=== PATIENT | male | born 1955 | race Hispanic/Latino ===

== ENCOUNTER 2018-06-11 08:25 | Emergency (ER) | payer OTHER ==
[~2018-06-11] VITALS: Ht 167.6 cm; Wt 73.5 kg
[2018-06-11] MEDS ORDERED: SODIUM CHLORIDE 0.9% 1000ML 1,000 ML IV STA ×2 (08:50→09:14)
[2018-06-11 09:15] LABS: BASOPHILS # (AUTO) 0.1 (0.0-0.1); BASOPHILS % 0.6 % (0.0-1.0); EOSINOPHILS # (AUTO) 0.3 (0.0-0.4); EOSINOPHILS % 2.4 % (0.0-6.0); HEMATOCRIT 45.7 % (38.2-49.6); HEMOGLOBIN 15.7 g/dL (14.0-18.0); LYMPHOCYTES # (AUTO) 1.3 (1.0-3.2); LYMPHOCYTES % 10.1 % (18.0-39.1); MEAN CORPUSCULAR HEMOGLOBIN 28.3 pg (28-32); MEAN CORPUSCULAR HGB CONC 34.4 g/dL (31-35); MEAN CORPUSCULAR VOLUME 82.3 fL (81-99); MONOCYTES # (AUTO) 0.8 (0.2-0.8); MONOCYTES % 6.5 % (4.4-11.3); NEUTROPHILS # (AUTO) 9.9 (2.1-6.9); NEUTROPHILS % 79.7 % (38.7-80.0); PLATELET COUNT 336 x10e3/uL (140-360); RED BLOOD COUNT 5.55 x10e6/uL (4.3-5.7); RED CELL DISTRIBUTION WIDTH 12.8 % (11.7-14.4)
[2018-06-11 09:19] LABS: CLARITY,URINE HAZY (CLEAR); COLOR,URINE YELLOW (YELLOW); KETONES,URINE NEGATIVE (NEGATIVE); LEUKOCYTE ESTERASE ,URINE NEGATIVE (NEGATIVE); NITRITE,URINE NEGATIVE (NEGATIVE); PROTEIN,URINE DIPSTICK NEGATIVE (NEGATIVE); URINE UROBILINOGEN 0.2 mg/dL (0.2 - 1)
[2018-06-11 09:20] LABS: BILIRUBIN,URINE NEGATIVE (NEGATIVE)
[2018-06-11 09:25] LABS: INR 0.89; PARTIAL THROMBOPLASTIN TIME 24.7 seconds (23.8-35.5); PROTHROMBIN TIME 12.5 seconds (11.9-14.5)
[2018-06-11] MEDS ORDERED: INSULIN REGULAR, HUMAN 100 UNIT/1 ML 3ML VIAL IV ONE (09:30)
[2018-06-11 09:33] LABS: ALANINE AMINOTRANSFERASE 26 IU/L (0-55); ALBUMIN 3.7 g/dL (3.5-5.0); ALBUMIN/GLOBULIN RATIO 0.8 (0.8-2.0); ALKALINE PHOSPHATASE 147 IU/L (40-150); ANION GAP 18.7 mmol/L (8-16); BLOOD UREA NITROGEN 28 mg/dL (7-26); BUN/CREATININE RATIO 18 (6-25); CALCIUM 10.5 mg/dL (8.4-10.2); CARBON DIOXIDE 26 mmol/L (22-29); CHLORIDE 97 mmol/L (98-107); CREATINE KINASE 81 IU/L (30-200); EST GLOMERULAR FILTRATION RATE 44 ML/MIN (60-); MAGNESIUM 2.7 MG/DL (1.3-2.1); POTASSIUM 3.7 mmol/L (3.5-5.1); SODIUM 138 mmol/L (136-145)
[2018-06-11 09:36] LABS: BACTERIA,URINE MODERATE /HPF; EPITHELIAL CELLS,URINE MODERATE /LPF; RBC,URINE 0-5 /HPF (0-5); YEAST,URINE MODERATE
[2018-06-11 09:38] LABS: GLUCOSE 596 mg/dL (74-118)
[2018-06-11] MEDS ORDERED: CEFTRIAXONE SOD 1 GM/NS 50 ML 50 ML IV NR ×2 (10:00→10:15)
--- NOTE | 2018-06-11 10:10 | Diagnostic Imaging Report ---
EXAMINATION: CHEST SINGLE (PORTABLE) INDICATION: ^HTN, HYPERGLYCEMIA ^[id number] ^[id number] COMPARISON: None FINDINGS: AP view TUBES and LINES: None. LUNGS: Lungs are well inflated. Lungs are clear. There is no evidence of pneumonia or pulmonary edema. PLEURA: No pleural effusion or pneumothorax. HEART AND MEDIASTINUM: The cardiomediastinal silhouette is unremarkable.. BONES AND SOFT TISSUES: No acute osseous lesion. Soft tissues are unremarkable. UPPER ABDOMEN: No free air under the diaphragm. IMPRESSION: No acute thoracic abnormality. Signed by: Dr. Tiffany Berry M.D. on 06/11/2018 10:07 AM
[2018-06-11] MEDS ORDERED: CEFTRIAXONE SOD 1 GM/NS 50 ML 50 ML IV ONE (10:30)
== END 2018-06-11 11:39 | disposition home or self-care (01) ==
LOC: ER 08:25
DX: B37.42 Candidal balanitis (principal); N30.90 Cystitis, unspecified without hematuria; E11.65 Type 2 diabetes mellitus with hyperglycemia; N28.9 Disorder of kidney and ureter, unspecified; I10 Essential (primary) hypertension; L40.9 Psoriasis, unspecified
CPT/HCPCS: 36415; 71045; 80053; 81001; 82550; 82553; 83605; 83735; 84484; 85025; 85610; 85730; 87040; 87086; 93005; 99284; J1817; J7030

== ENCOUNTER 2024-09-11 20:15 | Inpatient (IN) | payer BC, MEDICARE ==
[~2024-09-11] VITALS: Ht 167.6 cm; Wt 73.5 kg
[2024-09-11 21:02] LABS: BASOPHILS % 0.6 % (0.0-1.0); EOSINOPHILS % 5.6 % (0.0-6.0); LYMPHOCYTES % 23.8 % (18.0-39.1); MONOCYTES % 8.9 % (4.4-11.3); NEUTROPHILS % 60.2 % (38.7-80.0); RED CELL DISTRIBUTION WIDTH 13.7 % (11.7-14.4)
[2024-09-11 21:23] LABS: EST GLOMERULAR FILTRATION RATE 55.0 ML/MIN (>=60)
[2024-09-11] MEDS ORDERED: IOPAMIDOL 370 MG/ML 100 ML INFUS..BTL INJ ONE (21:34)
[2024-09-11] MEDS: SODIUM CHLORIDE 0.9% 1000ML 1,000 ML IV STA (21:46)
[2024-09-11] MEDS: ONDANSETRON HCL INJ 2MG/ML 2ML 2 MG/ML VIAL IV STA (21:46)
[2024-09-11] MEDS: Morphine 4mg INJECTION 4 MG/ML INJ IV ONE (21:59)
[2024-09-11 22:15] LABS: LEUKOCYTE ESTERASE ,URINE TRACE (NEGATIVE); PROTEIN,URINE DIPSTICK 2+ (NEGATIVE); URINE UROBILINOGEN 0.2 mg/dL (0.2 - 1)
[2024-09-11 22:40] LABS: EPITHELIAL CELLS,URINE FEW /LPF
[2024-09-11] MEDS: HYDRALAZINE HCL 20 MG/ML VIAL IV STA (23:37)
[2024-09-12] VITALS (8 sets, daily range): BP systolic 167–182; BP diastolic 93–109; PULSE 74–91; RESP 18; TEMP 97.2–98.8; O2SAT 97–98
[2024-09-12] MEDS: SODIUM CHLORIDE 0.9% 1000ML 1,000 ML IV SCH (01:50)
[2024-09-12] MEDS: Morphine 4mg INJECTION 4 MG/ML INJ IV PRN (02:11)
[2024-09-12] MEDS: ONDANSETRON HCL INJ 2MG/ML 2ML 2 MG/ML VIAL IV PRN (02:11)
[2024-09-12] MEDS: HYDRALAZINE HCL 20 MG/ML VIAL IV PRN (07:35)
[2024-09-12] MEDS: CLONIDINE HCL 0.1 MG/24 HR 1 EA PATCH TOP SCH (11:46)
[2024-09-12] MEDS: LABETALOL HCL 5 MG/ML 20ML VIAL IV ONE (15:29)
[2024-09-12] MEDS ORDERED: TALTZ AUTO80 MG/1 ML (17:00)
[2024-09-12] MEDS ORDERED: ISONIAZID300 MG (17:00)
[2024-09-12] MEDS ORDERED: LOSARTAN POTAS100 MG (17:00)
[2024-09-12] MEDS ORDERED: CHLORTHALIDONE25 MG (17:00)
[2024-09-12] MEDS ORDERED: ATORVASTATIN CA40 MG (17:00)
[2024-09-12] MEDS ORDERED: AMLODIPINE BESY10 MG (17:00)
[2024-09-12] MEDS ORDERED: JANUMET XR 50-1 EAC1 (17:00)
[2024-09-12] MEDS ORDERED: CLOTRIMAZOLE-BE15 GM TOP (17:02)
[2024-09-12] MEDS ORDERED: VOLTAREN ARTHRI20 GM (17:04)
[2024-09-12] MEDS ORDERED: VITAMIN B-650 MG PO (17:04)
[2024-09-12] MEDS: LABETALOL HCL 5 MG/ML 20ML VIAL IV STA (18:14)
[2024-09-12] MEDS ORDERED: DEXTROSE 50% SYRINGE 50 ML IV PRN (23:30)
[2024-09-13] MEDS: INSULIN LISPRO 100 UNIT/1 ML 3ML VIAL SQ SCH (07:30)
[2024-09-13 08:20] LABS: BASOPHILS % 0.2 % (0.0-1.0); EOSINOPHILS % 0.5 % (0.0-6.0); LYMPHOCYTES % 6.9 % (18.0-39.1); MONOCYTES % 8.9 % (4.4-11.3); NEUTROPHILS % 82.7 % (38.7-80.0); RED CELL DISTRIBUTION WIDTH 14.1 % (11.7-14.4)
[2024-09-13] MEDS: LOSARTAN POTASSIUM 100 MG TAB PO SCH (08:24)
[2024-09-13 08:38] VITALS: BP 175/95; PULSE 78; RESP 19; TEMP 97.9; O2SAT 98
[2024-09-13 08:45] VITALS: BP 175/95; PULSE 78; RESP 19; TEMP 97.9; O2SAT 98
[2024-09-13 09:17] LABS: CHOL/HDL RATIO 2.9 (3.9-4.7); LDL CHOLESTEROL 64.0 MG/DL (60-130)
[2024-09-13 09:21] LABS: EST GLOMERULAR FILTRATION RATE 60.0 ML/MIN (>=60)
[2024-09-13] MEDS: AMLODIPINE BESYLATE 10 MG TAB PO SCH (09:29)
[2024-09-13] MEDS: PYRIDOXINE HCL 50 MG TAB PO SCH (09:29)
[2024-09-13] MEDS: CHLORTHALIDONE 25 MG TAB PO SCH (09:29)
[2024-09-13] MEDS: ATORVASTATIN 40 MG TAB PO SCH (09:29)
[2024-09-13 11:33] VITALS: BP 159/99; PULSE 79; RESP 19; TEMP 98.9; O2SAT 98
[2024-09-13] MEDS ORDERED: PROPOFOL IV EMULSION 50 ML IV ONE (12:32)
[2024-09-13] MEDS ORDERED: SUCCINYLCHOLINE CHLORIDE 20 MG/ML 10ML VIAL ONE (12:32)
[2024-09-13] MEDS ORDERED: ROCURONIUM BROMIDE 1 ML IV ONE (12:32)
[2024-09-13] MEDS ORDERED: LIDOCAINE HCL 2% LOCAL INJ 5 ML SDV VIAL INJ ONE (12:32)
[2024-09-13] MEDS ORDERED: SUGAMMADEX SODIUM 200 MG/2 ML VIAL IV ONE (12:33)
[2024-09-13] MEDS ORDERED: MIDAZOLAM HCL 2 MG/2 ML VIAL ONE (12:33)
[2024-09-13] MEDS ORDERED: FENTANYL CITRATE/PF 100MCG/2 ML INJ ONE (12:33)
[2024-09-13] MEDS: SODIUM CHLORIDE 0.9% 1000ML 1,000 ML IV SCH (14:45)
[2024-09-13] MEDS ORDERED: HYDROMORPHONE 1MG/1ML INJ IV PRN (14:45)
[2024-09-13] MEDS ORDERED: ACETAMINOPHEN 1000 MG/100 ML IV PRN (14:45)
[2024-09-13 15:45] VITALS: BP 151/82; PULSE 79; RESP 18; TEMP 97.3; O2SAT 97
[2024-09-13] MEDS: HYDROCODONE/APAP 7.5MG-325MG 1 EA TAB PO PRN (16:36)
[2024-09-13 20:00] VITALS: BP 129/79; PULSE 85; RESP 20; TEMP 97.8; O2SAT 97
[2024-09-14] VITALS (7 sets, daily range): BP systolic 120–147; BP diastolic 75–84; PULSE 65–92; RESP 17–18; TEMP 97.8–98.8; O2SAT 96–100
[2024-09-14 05:34] LABS: BASOPHILS % 0.2 % (0.0-1.0); EOSINOPHILS % 1.5 % (0.0-6.0); LYMPHOCYTES % 8.8 % (18.0-39.1); MONOCYTES % 9.6 % (4.4-11.3); NEUTROPHILS % 79.1 % (38.7-80.0); RED CELL DISTRIBUTION WIDTH 13.9 % (11.7-14.4)
[2024-09-14 06:03] LABS: EST GLOMERULAR FILTRATION RATE 56.0 ML/MIN (>=60)
[2024-09-14] MEDS: POTASSIUM CHLORIDE 20 MEQ TAB CR PO ONE (15:27)
[2024-09-14] MEDS: BISACODYL 10 MG SUPP PR SCH (20:42)
[2024-09-15] VITALS: BP 151/86; PULSE 69; RESP 17; TEMP 98.6; O2SAT 98
[2024-09-15 04:00] VITALS: BP 130/79; PULSE 67; RESP 18; TEMP 97.5; O2SAT 98
[2024-09-15 07:40] VITALS: BP 154/95; PULSE 66; RESP 16; TEMP 97.8; O2SAT 100
[2024-09-15 08:49] LABS: RED CELL DISTRIBUTION WIDTH 13.9 % (11.7-14.4)
[2024-09-15 08:50] LABS: BASOPHILS % 0.9 % (0.0-1.0); EOSINOPHILS % 7.0 % (0.0-6.0); LYMPHOCYTES % 15.0 % (18.0-39.1); MONOCYTES % 10.0 % (4.4-11.3); NEUTROPHILS % 66.0 % (38.7-80.0)
[2024-09-15 09:24] LABS: EST GLOMERULAR FILTRATION RATE 61.0 ML/MIN (>=60)
[2024-09-15 09:52] VITALS: BP 154/95; PULSE 67; RESP 18; TEMP 97.5; O2SAT 98
[2024-09-15 12:40] VITALS: BP 161/81; PULSE 74; RESP 16; TEMP 97.9; O2SAT 99
[2024-09-15] MEDS: POTASSIUM CHLORIDE 10MEQ EA PO ONE (13:11)
[2024-09-15] MEDS: ONDANSETRON HCL INJ 2MG/ML 2ML 2 MG/ML VIAL IV PRN (18:52)
[2024-09-15] MEDS ORDERED: CEPHALEXIN500 M1 PO (19:31)
[2024-09-15] MEDS ORDERED: K-DUR10 MEQ PO (19:31)
[2024-09-15] MEDS ORDERED: HYDRALAZINE HCL10 MG PO (19:31)
[2024-09-15] MEDS ORDERED: PROTONIX40 MG PO (19:31)
[2024-09-15] MEDS ORDERED: CLONIDINE1 EACH TOP (19:31)
[2024-09-15] MEDS ORDERED: TYLENOL325 MG PO (19:31)
[2024-09-15] MEDS ORDERED: ONDANSETRON ODT4 MG PO (19:31)
[2024-09-15 20:00] VITALS: BP 161/97; PULSE 79; RESP 20; TEMP 97.7; O2SAT 100
== END 2024-09-15 21:08 | disposition home or self-care (01) | DRG 418 ==
LOC: ER 20:38 → ERHOLD 09-12 01:43 → MED/SURG 09-12 08:23
PROVIDERS: ADMIT Internal Medicine; ATTEND Internal Medicine
PROC: 0FT44ZZ Resection of Gallbladder, Percutaneous Endoscopic Approach (ICD-10-PCS; principal; 2024-09-13 13:18)
DX: K80.00 Calculus of gallbladder with acute cholecystitis without obstruction (principal); D84.821 Immunodeficiency due to drugs; K82.A2 Perforation of gallbladder in cholecystitis; I16.0 Hypertensive urgency; I10 Essential (primary) hypertension; E11.9 Type 2 diabetes mellitus without complications; L40.9 Psoriasis, unspecified; T50.906A Underdosing of unspecified drugs, medicaments and biological substances, initial encounter; E78.00 Pure hypercholesterolemia, unspecified; G89.18 Other acute postprocedural pain; E87.5 Hyperkalemia; Z87.440 Personal history of urinary (tract) infections; Z88.1 Allergy status to other antibiotic agents; Z88.0 Allergy status to penicillin; Z79.69 Long term (current) use of other immunomodulators and immunosuppressants; Z91.148 Patient's other noncompliance with medication regimen for other reason; Y92.009 Unspecified place in unspecified non-institutional (private) residence as the place of occurrence of the external cause; Z90.79 Acquired absence of other genital organ(s); Z90.49 Acquired absence of other specified parts of digestive tract
CPT/HCPCS: 36415; 74177; 76705; 80053; 80061; 81001; 82550; 82948; 83036; 83690; 83735; 84484; 85025; 88304; 93005; 93306; 99284; C1766; J0330; J0360; J2003; J2250; J2270; J2405; J2470; J2543; J7030; Q9967